=== PATIENT | female | born 1990 | race Caucasian/White ===

== ENCOUNTER 2020-12-16 12:58 | Emergency (ER) | payer OTHER ==
[~2020-12-16] VITALS: Ht 167.6 cm; Wt 110.2 kg
[2020-12-16 13:00] VITALS: BP 123/86
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
[2020-12-16 14:35] LABS: BASO # 0.1 x10^3/uL (0.0-0.2); BASO % 1 % (0-3); EOS # 0.1 x10^3/uL (0.0-0.7); EOS % 1 % (0-3); HEMATOCRIT 46.6 % (36.0-47.0); HEMOGLOBIN 15.3 g/dL (12.0-15.5); LYMPH # 1.6 x10^3/uL (1.0-4.8); LYMPH % 23 % (24-48); MEAN CORPUSCULAR HEMOGLOBIN 30 pg (25-35); MEAN CORPUSCULAR HGB CONC 33 g/dL (31-37); MEAN CORPUSCULAR VOLUME 91 fL (79-100); MONO # 0.4 x10^3/uL (0.0-1.1); MONO % 6 % (0-9); NEUT # 4.8 x10^3uL (1.8-7.7); NEUT % 68 % (31-73); PLATELET COUNT 414 x10^3/uL (140-400); RED CELL DISTRIBUTION WIDTH 12.7 % (11.5-14.5)
[2020-12-16 14:41] LABS: CALCIUM 8.4 mg/dL (8.5-10.1); CREATININE 0.6 mg/dL (0.6-1.0); GFR 118.2; POTASSIUM 3.5 mmol/L (3.5-5.1)
--- NOTE | 2020-12-16 14:43 | EKG ---
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
[2020-12-16 14:46] LABS: BARBITURATES NEG (NEG); BENZODIAZEPINES POS (NEG); CANNABINOIDS NEG (NEG); COCAINE NEG (NEG); METHADONE NEG (NEG); OPIATES NEG (NEG); PHENCYCLIDINE NEG (NEG)
[2020-12-16 14:47] LABS: AMPHETAMINE/METHAMPHETAMINE NEG (NEG)
[2020-12-16 14:58] LABS: BILIRUBIN,URINE NEG (NEG); CLARITY,URINE CLEAR; COLOR,URINE YELLOW; GLUCOSE,URINE NEG (NEG); NITRITE,URINE NEG (NEG); UROBILINOGEN,URINE 0.2 mg/dL (0.2 mg/dL)
[2020-12-16 14:59] LABS: BACTERIA,URINE 0 /HPF (0-FEW); SQUAMOUS EPITHELIAL CELL,UR MANY /LPF
[2020-12-16 15:00] LABS: RBC,URINE OCC /HPF (0-2)
[2020-12-16] MEDS ORDERED: LORazepam 1 MG TABLET ONE (16:41)
[2020-12-16] MEDS ORDERED: LORazepam 1 MG TABLET PO ONE ×3 (16:45→20:00)
[2020-12-16] MEDS ORDERED: ACETAMINOPHEN 500 MG TABLET PO ONE ×2 (18:36→18:45)
[2020-12-16] MEDS ORDERED: hydrOXYzine HCL 25 MG TABLET PO PRN (19:45)
[2020-12-16] MEDS ORDERED: lamoTRIgine 100 MG TABLET. PO SCH (20:00)
[2020-12-16] MEDS ORDERED: SERTRALINE 100 MG TABLET. PO ONE (20:00)
[2020-12-17] MEDS ORDERED: LORazepam 1 MG TABLET PO ONE (08:30)
[2020-12-17] MEDS ORDERED: ACETAMINOPHEN 500 MG TABLET PO ONE (10:45)
== END 2020-12-17 11:51 ==
LOC: ER 12:58
DX: R45.851 Suicidal ideations (principal); F31.9 Bipolar disorder, unspecified; F41.9 Anxiety disorder, unspecified; F25.9 Schizoaffective disorder, unspecified; Z20.822 Contact with and (suspected) exposure to COVID-19
CPT/HCPCS: 36415; 80048; 80307; 81001; 81025; 85025; 87426; 93005; 99285; U0003